=== PATIENT | male | born 1960 | race Caucasian/White ===

== ENCOUNTER 2018-12-14 19:50 | Emergency (ER) | payer BC, OTHER ==
[~2018-12-14] VITALS: Ht 182.9 cm; Wt 95.3 kg
[2018-12-14] MEDS: ONDANSETRON HCL 4 MG/2 ML VIAL ONE (20:25)
[2018-12-14] MEDS: ONDANSETRON HCL 4 MG/2 ML VIAL IV ONE (20:25)
[2018-12-14 20:31] LABS: Basophils # (auto) 0.1 uL; Basophils % (auto) 0.7 % (0.0-2.0); Eosinophils # (auto) 0.1 uL; Eosinophils % (auto) 0.3 % (0.0-7.0); Hematocrit 51.1 % (41.0-53.0); Hemoglobin 17.5 g/dL (13.5-17.5); Lymphocytes # (auto) 5.2 uL; Lymphocytes % (auto) 34.3 % (10.0-50.0); Mean Corpuscular Hemoglobin 32.6 pg (28.0-32.0); Mean Corpuscular Hgb Conc. 34.3 g/dL (32.0-36.0); Monocytes # (auto) 1.2 uL; Monocytes % (auto) 7.6 % (0.0-12.0); Neutrophils # (auto) 8.7 uL; Neutrophils % (auto) 57.1 % (37.0-80.0); Nucleated Red Blood Cells % 0.1 %; Platelet Count (auto) 310 10^3/uL (140-450); Red Blood Cells 5.38 10^6/uL (4.5-5.90); Red Cell Distribution Width 13.1 % (11.8-14.3); White Blood Cell 15.2 10^3/uL (4.4-10.8)
[2018-12-14 20:48] LABS: INR 1.03 (0.9-1.15)
[2018-12-14 20:53] LABS: Alanine Aminotransferase 26 U/L (16-61); Anion Gap 18 (5-15); Aspartate Aminotransferase 13 U/L (15-37); BUN/Creatinine Ratio 14.6; Blood Urea Nitrogen 23 mg/dL (7-18); Calcium 8.8 mg/dL (8.5-10.1); Carbon Dioxide 14 mmol/L (21-32); Chloride 104 mmol/L (98-107); GFR African American 59 mL/min; GFR Non-African American 48 mL/min; Glucose 199 mg/dL (74-106); Magnesium 2.2 mg/dL (1.6-2.6); Potassium 3.2 mmol/L (3.5-5.1); Sodium 136 mmol/L (136-145)
[2018-12-14 20:58] LABS: Alkaline Phosphatase 81 U/L (45-117); Bilirubin, Total 1.2 mg/dL (0.2-1.0); Total Protein 8.1 g/dL (6.4-8.2)
[2018-12-14] MEDS: SODIUM CHLORIDE 0.9% 1,000 ML IVB ONE (21:05)
[2018-12-14] MEDS: cefTRIAXone 1GM/50ML D5W 50 ML IV ONE (21:31)
[2018-12-14] MEDS: PANTOPRAZOLE 40 MG/10 ML VIAL IV ONE (21:45)
[2018-12-14] MEDS: PROMETHAZINE HCL 25 MG/ML 1ML IV ONE (21:45)
[2018-12-14 22:16] LABS: Amylase 90 U/L (25-115); Lipase 147 U/L (73-393)
[2018-12-14 22:25] LABS: Lactic Acid w/Reflex 3.9 mmol/L (0.4-2.0)
[2018-12-15 02:40] VITALS: BP 126/81
[2018-12-15 03:04] LABS: Albumin 3.2 g/dL (3.4-5.0); BUN/Creatinine Ratio 18.8; Calcium 7.6 mg/dL (8.5-10.1); Potassium 3.3 mmol/L (3.5-5.1)
[2018-12-15 03:08] LABS: Bilirubin, Total 0.9 mg/dL (0.2-1.0)
== END 2018-12-15 04:30 | disposition home or self-care (01) ==
LOC: ER 19:54
DX: R11.2 Nausea with vomiting, unspecified (principal); R10.13 Epigastric pain; E87.6 Hypokalemia; E78.5 Hyperlipidemia, unspecified; I10 Essential (primary) hypertension; I25.2 Old myocardial infarction; I25.10 Atherosclerotic heart disease of native coronary artery without angina pectoris; Z98.61 Coronary angioplasty status
CPT/HCPCS: 36415; 71045; 74176; 80053; 82010; 82150; 82962; 83605; 83690; 83735; 83880; 84484; 85025; 85610; 85730; 86710; 87040; 93005; 94761; 96374; 96375; 99284; C9113; J0696; J2405; J2550; J7030